=== PATIENT | female | born 1990 | race Two or more races ===

== ENCOUNTER 2024-06-14 07:53 | Emergency (ER) | payer BC ==
[~2024-06-14] VITALS: Ht 157.5 cm; Wt 71.7 kg
[2024-06-14] MEDS ORDERED: VYVANSE50 MG (07:56)
[2024-06-14] MEDS ORDERED: DEXAMETHASONE SODIUM PHOSPHATE 4 MG/ML VIAL IM STA (09:32)
[2024-06-14] MEDS ORDERED: DEXAMETHASONE SODIUM PHOSPHATE 4 MG/ML VIAL ONE (09:38)
== END 2024-06-14 09:43 | disposition home or self-care (01) ==
LOC: ER 07:55
DX: B34.9 Viral infection, unspecified (principal); Z20.822 Contact with and (suspected) exposure to COVID-19